=== PATIENT | male | born 1950 | race Caucasian/White ===

== ENCOUNTER → 2025-05-27 13:41 | Outpatient (REF) | payer MEDICARE, SELFPAY | LOC: RAD 13:41 | PROVIDERS: ATTENDING PHYSICIAN Family Medicine | DX: R61 Generalized hyperhidrosis (principal) | CPT/HCPCS: 71046 ==

== ENCOUNTER → 2025-08-08 22:00 | Outpatient (REF) | payer MEDICARE, SELFPAY | LOC: DHSLP 22:00 | PROVIDERS: ATTENDING PHYSICIAN Family Medicine | DX: G47.33 Obstructive sleep apnea (adult) (pediatric) (principal) | CPT/HCPCS: 95806 ==